=== PATIENT | female | born 1980 | race Caucasian/White ===

== ENCOUNTER 2019-11-18 15:12 | Outpatient (CLI) | payer OTHER, SELFPAY ==
--- NOTE | ~2019-11-18 | US_ITS ---
US OB <= 14 weeks fetus DATE: 11/18/2019 15:49 INDICATION: Gestational age determination TECHNIQUE: Real-time and Doppler analysis COMPARISON: None FINDINGS: There is measures 12.1 cm height, 5.4 cm AP and 7.3 cm transverse dimension. An intrauterine gestational sac is identified, with yolk sac and pole. There is normal surround ing hyperechogenicity consistent with decidual reaction. heart rate of 102 bpm. There is a 7 x 3 x 7 mm hypoechoic area adjacent to the gestational sac, consistent with subchorionic hemorrhage. Mean sac diameter measures 1.41 cm, consistent with 6 weeks estimated gestational age [place]-rump length of 0.39 cm is consistent with 6 weeks 1 day +/- 4 days estimated gestational age wi th LETHA of 07/12/2020, compared to 07/13/2020 by LMP. The right ovary measures 44 x 26 x 31 mm and contains a probable corpus luteum cyst measuring 27 x 18 .6 x 18.3 mm. The left ovary measures 29.6 x 11.6 x 21.9 mm. No pelvic mass or abnormal pelvic fluid collection is detected otherwise. IMPRESSION: Estimated gestational age of 6 weeks 1 day +/- 4 days; LETHA by ultrasound is 07/12/2020 Reviewed, dictated and finalized at [facility]. Reviewed, dictated and finalized at [facility]. IMPRESSION: Estimated gestational age of 6 weeks 1 day +/- 4 days; LETHA by ultra sound is 07/12/2020
== END 2019-11-18 15:13 | disposition home or self-care (01) ==
PROVIDERS: Visit Provider Obstetrics & Gynecology Gynecology
DX: O26.21 Pregnancy care for patient with recurrent pregnancy loss, first trimester (principal); Z3A.01 Less than 8 weeks gestation of pregnancy
CPT/HCPCS: 76801

== ENCOUNTER 2019-12-20 12:40 | Outpatient (CLI) | payer OTHER, SELFPAY ==
--- NOTE | ~2019-12-20 | US_ITS ---
EXAMINATION: US OB <= 14 weeks fetus DATE: 12/20/2019 13:40 INDICATION: Subchorionic hemorrhage, first trimester TECHNIQUE: Real-time pelvic transabdominal and transvaginal ultrasound was performed. COMPARISON: 11/18/2019 FINDINGS: The uterus measures 12.7 x 10.3 x 6.0 cm. There is an intrauterine gestational sac. There is an 11 mm x 5 mm x 10 mm hypoechoic area adjacent to the gestational sac which previously measured 7 x 3 x 7 mm. A yolk sac is identified. heart motion is identified measuring 161 beats per paul te (bpm) by M-mode Doppler. The crown rump length measures 3.8 cm , which correlates with an es timated gestational age of 11 weeks and 3 day(s) (+/-) 6 day(s). The left ovary is not visualized however no left adnexal abnormality is seen. The right ovary measure s 3.0 x 2.7 x 2.4 cm. There is normal vascular flow in the right ovary. There is no free fluid in the pelvis. IMPRESSION: 1. Live intrauterine with an estimated gestational age of 11 weeks and 3 day(s) (+/-) 6 day (s) and an estimated delivery date of 07/07/2020. 2. Persistent small subchorionic hematoma with minimal increase in size. Reviewed, dictated and finalized at location [facility]. IMPRESSION: 1. Live intrauterine with an estimated gestational age of 11 weeks an d 3 day(s) (+/-) 6 day(s) and an estimated delivery date of 07/07/2020. 2. Persistent small subchorionic hematoma with minimal increase in size.
== END 2019-12-20 12:41 | disposition home or self-care (01) ==
PROVIDERS: Visit Provider Obstetrics & Gynecology Gynecology
DX: O20.9 Hemorrhage in early pregnancy, unspecified (principal); Z3A.11 11 weeks gestation of pregnancy
CPT/HCPCS: 76801

== ENCOUNTER 2020-01-10 13:59 | Outpatient (CLI) | payer OTHER, SELFPAY ==
--- NOTE | ~2020-01-10 | US_ITS ---
EXAMINATION: US OB <= 14 weeks fetus DATE: 01/10/2020 14:33 INDICATION: Follow-up subchorionic hemorrhage. TECHNIQUE: Real-time transabdominal obstetric ultrasound. FINDINGS: Comparison to 12/20/2019 There is a single living fetus in breech presentation. No evidence for residual subchorionic hemorrha ge. The placenta is posterior without placenta previa. cardiac activity and movement is noted with a heart rate of 157 beats per minute. T he amniotic fluid volume is subjectively normal. The following biometric data were obtained: BPD: 25mm corresponds to gestational age 14 weeks 1 days. Head circumference: 91mm corresponds to gestational age 14 weeks 1 days. Abdominal circumference: 74mm corresponds to gestational age 14 weeks 0 days. Femur length: 13mm corresponds to gestational age 13 weeks 5 days. Estimated weight: 85grams +/- 13grams.] IMPRESSION: 1. Single living intrauterine in breech presentation with an estimated gestational age of 13 weeks 5 days by inititial ultrasound. Appropriate interval growth. 2. No evidence for residual subchorionic hemorrhage.. Reviewed, dictated and finalized at location [facility]. IMPRESSION: 1. Single living intrauterine in breech presentation with an estimat ed gestational age of 13 weeks 5 days by inititial ultrasound. Appropriate int erval growth. 2. No evidence for residual subchorionic hemorrhage..
== END 2020-01-10 14:00 | disposition home or self-care (01) ==
LOC: ANHIMG 14:01
PROVIDERS: Visit Provider Obstetrics & Gynecology Gynecology
DX: O36.8910 Maternal care for other specified fetal problems, first trimester, not applicable or unspecified (principal); Z3A.13 13 weeks gestation of pregnancy
CPT/HCPCS: 76801

== ENCOUNTER 2020-06-27 14:00 | Outpatient (CLI) | payer OTHER, SELFPAY ==
[2020-06-27 15:35] VITALS: BP 109/76; PULSE 82
[2020-06-27 15:44] LABS: Basophils Percent Auto 0.3 % (0.2-1.2); Eosinophils Percent Auto 0.6 % (0-4.4); Hematocrit 37.5 % (37.0-47.0); Hemoglobin 12.7 g/dL (12.0-15.0); Immature Granulocyte Absolute 0.03 K/mm3 (0.00-0.031); Immature Granulocyte Percent A 0.5 % (0-0.5); Lymphocytes Absolute Auto 1.93 K/mm3 (0.9-3.2); Lymphocytes Percent Auto 30.6 % (18.3-44.2); Mean Corpuscular HGB Conc 33.9 g/dl (32-36); Mean Corpuscular Hemoglobin 32.2 pg (26-34); Mean Corpuscular Volume 95.2 fl (80-100); Mean Platelet Volume 10.1 fl (7.4-10.4); Monocytes Absolute Auto 0.4 K/mm3 (0.1-0.6); Monocytes Percent Auto 5.6 % (2.6-8.5); Neutrophils Absolute Auto 3.9 K/mm3 (1.3-6.7); Neutrophils Percent Auto 62.4 % (45.5-73.1); Platelet Count Result 234 k/mm3 (150-375); Red Blood Count 3.94 M/mm3 (4.2-5.4); Red Cell Distribution Width 14.2 % (11.5-14.5); White Blood Count 6.3 K/mm3 (4.5-10.0)
[2020-06-27 15:54] LABS: Alanine Aminotransferase 6 U/L (4-35); Albumin Level 3.4 g/dL (3.5-5.1); Alkaline Phosphatase 72 U/L (38-126); Anion Gap 4 mmol/L (8-16); Aspartate Amino Transferase 19 U/L (14-36); Bilirubin,Total 0.1 mg/dL (0.2-1.3); Blood Urea Nitrogen 3 mg/dL (7-17); Calcium 9.5 mg/dL (8.4-10.2); Carbon Dioxide 26 mmol/L (22-30); Chloride 106 mmol/L (98-107); Estimated Glomerular Filt Rate > 60; Glucose 75 mg/dL (65-105); Lactate Dehydrogenase 369 U/L (313-618); Potassium 3.6 mmol/L (3.4-5.0); Sodium 136 mmol/L (137-145)
[2020-06-27 16:06] LABS: Creatinine Urine 66.7 mg/dL; Total Protein Urine Random 12 mg/dL; Ur Ttl Prot Creatinine Ratio 0.18 mg/mg (0-0.20)
[2020-06-27 16:14] LABS: Add Urine Microscopic? YES; Amorphous Sediment Urine Few; Appearance Urine Cloudy (Clear); Bacteria Urine 2+ /hpf; Bilirubin Urine Negative (Negative); Blood Urine Negative (Negative); Color Urine Yellow (Yellow); Glucose Urine UA Negative (Negative); Ketones Urine Negative (Negative); Leukocyte Esterase Ur Trace LEU/UL (NEGATIVE); Mucus Urine Rare /lpf; Nitrate Urine Negative (Negative); Protein Urine Negative (Negative); Squamous Epithelial Cell Urine Many /hpf (Few); Urobilinogen Urine Negative mg/dL (<2.0); WBC Urine 0-3 /hpf (0-3)
[2020-06-27 16:15] LABS: Partial Thromboplastin Time 25.7 SECONDS (22.3-36.8)
[2020-06-27 16:39] VITALS: BP 120/51; PULSE 80
--- NOTE | 2020-06-27 16:44 | PC.NURSE ---
called DR. orourke updated lab result for HIP. still waiting for clotting lab result. okay to discharge
[2020-06-29 11:24] LABS: Protein S Antigen, Free 47 % normal (50-147); Protein S Antigen, Total 84 % normal (70-140)
[2020-06-29 13:58] LABS: Protein C Antigen 82 % (70-140)
[2020-06-29 20:13] LABS: Antithrombin III Activity 141 % normal (80-135)
[2020-06-30 19:47] LABS: Anti Cardio Antibody IgM 13 MPL (<=12); Anti Cardiolipin Antibody IgA <11 APL (<=11); Anti Cardiolipin Antibody IgG <14 GPL (<=14)
[2020-07-03 13:19] LABS: Reference Lab Test Result 35
== END 2020-06-27 16:30 | disposition home or self-care (01) ==
LOC: ANHOBOP 14:05
PROVIDERS: PCP Family Medicine; Visit Provider Obstetrics & Gynecology Gynecology
DX: O13.9 Gestational [pregnancy-induced] hypertension without significant proteinuria, unspecified trimester (principal); Z3A.00 Weeks of gestation of pregnancy not specified
CPT/HCPCS: 36415; 59025; 80053; 81001; 81240; 81241; 81291; 82570; 83615; 84156; 84550; 85025; 85300; 85302; 85303; 85305; 85306; 85730; 86038; 86146; 86147; 87086

== ENCOUNTER 2020-07-05 14:24 | Outpatient (CLI) | payer OTHER, SELFPAY ==
[2020-07-05 15:22] LABS: Hematocrit 37.6 % (37.0-47.0); Hemoglobin 12.4 g/dL (12.0-15.0); Mean Corpuscular Hemoglobin 31.5 pg (26-34); Mean Corpuscular Volume 95.4 fl (80-100); Mean Platelet Volume 10.5 fl (7.4-10.4); Platelet Count Result 231 k/mm3 (150-375); Red Blood Count 3.94 M/mm3 (4.2-5.4); Red Cell Distribution Width 14.1 % (11.5-14.5); White Blood Count 6.9 K/mm3 (4.5-10.0)
[2020-07-06 13:04] LABS: Rapid Plasma Reagin Non-Reactive (NonReactive)
== END 2020-07-05 14:25 | disposition home or self-care (01) ==
PROVIDERS: PCP Family Medicine; Visit Provider Obstetrics & Gynecology Gynecology
DX: Z01.812 Encounter for preprocedural laboratory examination (principal); O34.219 Maternal care for unspecified type scar from previous cesarean delivery; Z3A.39 39 weeks gestation of pregnancy
CPT/HCPCS: 36415; 85027; 86592; 86850; 86900; 86901

== ENCOUNTER 2020-07-06 05:22 | Inpatient (IN) | payer OTHER, SELFPAY ==
--- NOTE | 2020-06-24 15:55 | PC.NURSE ---
VERIFIED WITH OR SCHEDULE AND PATIENT --C/S 07/06/20 AT 0730 PATIENT GIVEN REQUISITION FOR LAB DRAW ON 07/05/20
[2020-07-03 19:15] VITALS: BP 107/74; PULSE 67; RESP 14; TEMP 36.4; O2SAT 99
[2020-07-06] VITALS (67 sets, daily range): BP systolic 91–123; BP diastolic 56–82; PULSE 51–112; RESP 8–16; TEMP 35.9–36.8; O2SAT 83–100; BMI 27.2
--- NOTE | 2020-07-06 05:26 | LDADM ---
This patient, Catherine Cleveland, was admitted to Labor/Delivery/Recovery 120 on 07/06/20 at 05:22. Plans for labor, pain management and were discussed with patient. Patient/family oriented to hospital policies and general routines including ID bracelet, bed and alarms, visiting hours, pain management, procedures, bathroom and other care routines, personal items, smoking policy, room service/diet and guest tray routines, security routines, and visiting hours. Patient/Family are encouraged to report perceived risks to care and to ask questions if they do not understand what they are told or what they should do. See OBIX for further documentation.
--- NOTE | 2020-07-06 06:28 | WPDANESEPP ---
Anes - Eval Pre Procedure Procedure: Operation Date: 07/06/20 07:30 Proposed Procedures p Repeat Section - Amina Davis MD Date/Time: 07/06/20 06:28 Pre Op Diagnosis: C/S Patient Data Age: 40 Gender: F Height: 1.7 m Weight: 79 kg Allergies Allergy/AdvReac Type Severity Reaction Status Date / Time erythromycin base Allergy Intermediate Palpitation Verified 06/24/20 15:39 s amoxicillin AdvReac Intermediate Nightmare Verified 07/06/20 06:20 Home Medications Medication Instructions Recorded Confirmed Type cholecalciferol (vitamin D3) 125 mcg PO DAILY 06/24/20 06/24/20 History [Vitamin D3] ferrous sulfate 325 mg PO 3XW 06/24/20 06/24/20 History prenat.vits,estefany,zpw-ivgy-bujxl 1 tablet PO DAILY 06/24/20 07/06/20 History [ #2] Patient hx anesthesia problems: none Family hx anesthesia problems: none PMFSH Past Medical History Medical History Anxiety Surgical History Surgical History (Updated 07/06/20 @ 06:29 by Deepika Bowen CRNA) H/O: Family History Family History Mother Hypertension Father Hypertension Social History Social History Smoking status: Never smoker Substance use: never Spiritual care concerns: No Exam Day of Procedure 07/06/20 06:28
[2020-07-06] MEDS: LACTATED RINGERS 1,000 ML 125 ML IV CONT (06:36)
--- NOTE | 2020-07-06 06:36 | WPDANESEFPP ---
Anes - Eval Final PreProcedure Day of Procedure 07/06/20 06:36 Patient weight: overweight Heart: regular rate and rhythm Lungs: clear to auscultation Airway: Mallampati scale class II Neurological: alert and oriented Last oral intake: >/= 8 hours ASA classification: II Emergent: no Anesthetic plan: proceed Anesthesia type and monitoring: regional spinal and standard monitoring Informed Consent: The patient's anesthetic plan and its attendant risks and benefits were discussed with the patient/family/POA. Questions were solicited and answers provided to the satisfaction of the patient/family/POA.
--- NOTE | 2020-07-06 07:15 | WPDHPUPDATE1 ---
History and Physical Update Update Date/Time: 07/06/20 07:15 History and Physical has been reviewed, including an updated exam of the patient. There are NO changes in the patient's condition. Risks, benefits, and alternatives have been discussed and questions answered. Patient agrees to proceed with procedure.
--- NOTE | 2020-07-06 07:16 | PM.IMHP ---
H&P: HPI History of Present Illness Date/Time: 07/06/20 07:16 Chief Complaint: scheduled csection Narrative: 40 [id number] here for repeat csection at 39 wks. Patient with recent episode of vision loss and weakness and tingling of her left hand and fingers about 10 days ago. Clotting work up so far is normal but several labs are still pending. labs A+, RPR -, HIV -, Rubella Immune, HBSAG -, GBS -. She had normal NIPT and level 2 u/s for AMA. [facility] Past Medical History Medical History (Updated 07/06/20 @ 07:21 by Amina Davis MD) Anxiety Surgical History Surgical History (Updated 07/06/20 @ 07:21 by Amina Davis MD) H/O: x 2 Family History Family History Mother Hypertension Father Hypertension Social History Social History Smoking status: Never smoker Substance use: never Spiritual care concerns: No Meds Home Medications and Allergies Home Medications Medication Instructions Recorded Confirmed Type cholecalciferol (vitamin D3) 125 mcg PO DAILY 06/24/20 06/24/20 History [Vitamin D3] ferrous sulfate 325 mg PO 3XW 06/24/20 06/24/20 History prenat.vits,estefany,ndk-wtjf-avmly 1 tablet PO DAILY 06/24/20 07/06/20 History [ #2] Allergies Allergy/AdvReac Type Severity Reaction Status Date / Time erythromycin base Allergy Intermediate Palpitation Verified 06/24/20 15:39 s amoxicillin AdvReac Intermediate Nightmare Verified 07/06/20 06:20 Vital Signs Vital Signs - 24 hr 07/06/20 06:36 07/06/20 06:41 07/06/20 06:46 Pulse Rate 82 87 Blood Pressure 122/79 110/73 Pulse Oximetry 99 100 100 07/06/20 06:51 07/06/20 06:56 07/06/20 07:00 Pulse Rate 77 Blood Pressure 108/66 Pulse Oximetry 100 100 07/06/20 07:01 07/06/20 07:06 07/06/20 07:11 Pulse Rate Blood Pressure Pulse Oximetry 100 100 100 07/06/20 07:15 Pulse Rate Blood Pressure 115/74 Pulse Oximetry Exam Const: General: comfortable and anxious Resp: Effort & Inspection: normal respiratory effort Auscultation: clear to auscultation bilaterally Cardio: Rate: regular rate Rhythm: regular rhythm GI: Inspection: normal to inspection Other: Fundal ht 39 cm Assessment and Plan Assessment and plan (1) 39 weeks gestation of : Code(s): Z3A.39 - 39 weeks gestation of Status: Acute (2) H/O: : Code(s): Z98.891 - History of uterine scar from previous surgery Status: Inactive Assessment and Plan: Plan to proceed with repeat csection (3) TIA (transient ischemic attack): Code(s): G45.9 - Transient cerebral ischemic attack, unspecified Status: Acute Assessment and Plan: most likely recent TIA vs complicated migraine Plan pneumatics and will add nolberto jay post op in recovery
[2020-07-06] MEDS: ceFAZolin 2 GM/D5W 50 ML 2 GM/50 ML BAG IVPB (07:31)
[2020-07-06 07:45] LABS: HIV 1/2 Ab P24 Ag Result Negative (Negative)
--- NOTE | 2020-07-06 08:33 | P.OP_ITS ---
Procedure Note - Detailed Date of procedure: 07/06/20 Pre-op diagnosis: C/S Previous x2 Intrauterine at 39 weeks Post-op diagnosis: same Procedure performed: Repeat low transverse section with adhesiolysis Description of procedure: The patient was taken to the operating room and placed under spinal anesthesia in the dorsal supine position with a leftward tilt. She was prepped and draped in the usual sterile fashion. Once anesthesia was deemed adequate a Pfannenstiel skin incision was made through her prior incision and carried down to the underlying layer of fascia with the scalpel. The fascial incision was extended laterally using Arthur scissors. Bovie cautery was used to obtain hemostasis in the subcutaneous tissues. The fascial edges are grasped with [place] and the rectus muscles dissected off using sharp dissection due to adhesions. The peritoneum is entered bluntly and the incision extended to the left without difficulty however the right uterus is noted to be densely adherent to the anterior abdominal wall. Using sharp dissection, blunt dissection and Bovie cautery the uterus is dissected off the anterior abdominal wall. The bladder blade is placed. The bladder is noted to be densely adherent to the lower uterine segment. This was left intact and the lower uterine segment incision was made just above the bladder flap. Using a scalpel the uterus was i ncised in a transverse fashion and extended bluntly laterally. Membranes are ruptured and clear fluid noted. The vertex is guided through the incision is the dairy and food laboratory assistant applied fundal pressure. The infant was fully delivered. The cord is detangled, clamped, and cut. The is handed to the waiting nursery nurse. The placenta is removed using manual traction. The uterus is cleared of all clots and debris and exteriorized. The uterine incision was closed using 0 Monocryl in a running locked fashion with the same suture to imbricate 1 additional [id number] suture was required in the midline for hemostasis. The previously dissected uterine muscle required a running stitch of 0 Monocryl in a running locked fashion as well as several [id number] sutures for hemostasis. The cul-de-sac is irrigated and the uterus is returned to the abdomen. Gutters were irrigated. Incisions are again inspected and noted to be hemostatic. The fascia is closed using 0 Vicryl in a running fashion. Subcutaneous tissues were made hemostatic using Bovie cautery. Skin is closed using 4 0 Vicryl in a subcuticular fashion. Dermaflex was placed over the incision. Sponge, needle, and instrument counts are correct per the OR staff. Anesthesia: spinal Surgeon: Amina Davis MD Estimated blood loss (mL): 550 Drains: Yes ([place]) Packing: No Pathology: none sent Complications: No immediate complications Condition: stable Disposition: PACU Findings: Female infant weighing 7 lb 1 oz with 9 and 9 Apgars. Nuchal cord x1. Normal-appearing tubes and ovaries. The anterior abdominal wall is densely adherent to the right lower half of the uterus. Bladder flap is densely adherent.
--- NOTE | 2020-07-06 08:39 | PM.OBDSVD ---
DS: Admitting Diagnosis Admitting Diagnosis Admitting Diagnosis: Previous section x2 Intrauterine at 39 weeks DS: Discharge Diagnosis Discharge Diagnosis (1) 39 weeks gestation of : Code(s): Z3A.39 - 39 weeks gestation of Status: Acute (2) H/O: : Code(s): Z98.891 - History of uterine scar from previous surgery Status: Acute OB - DS: Summary OB Procedures : Ultrasound OB Procedures Intrapartum: low cervical, transverse OB Procedures: : None Peripartum Data Delivery Method: Section Procedures: Procedures Operation Date: 07/06/20 07:30 <No data on this case meets the specified criteria> complications: none Status at Discharge Functional status at discharge: independent ambulation Overall status at discharge: patient is progressing back to baseline Time Spent with Patient Time attestation: Total time spent providing and/or coordinating discharge services: DS: Data Data Completed and Pending Labs on day of discharge: Labs from last 24 hours 07/06/20 06:34 HIV 1&2 Ab/P24 Ag 4thGn Negative Discharge Plan Discharge Attending physician on discharge: Amina Davis Discharging Clinician: Allan Reaves Anticipated Discharge Date/Time: 07/09/20 08:40 Patient Disposition: Home, Self-Care Activity: may shower, may drive after 2 weeks and pelvic rest Diet: regular Wound Care Instructions: incision open to air Discharge Instructions: Education: Mom and Baby Guide Given to: Mother Follow-Up: Call your delivering provider's office for an appointment to be seen in: 1 Week Mom and baby should come to the [facility] for the follow-up appointment. Appointment Date/Time: July 10, 2020 at 11:00 am What to expect at your follow-up visit: Blood Pressure Check Call [phone] if you are unable to keep your appointment time. BREAST CARE: * Wear a snug supportive bra. * For engorgement discomfort: Breast Feeding: * Apply warm moist washcloths * Express milk as needed to relieve engorgement * Wear loose clothing Bottle Feeding: * May apply ice packs * For sore nipples: * Identify correct latch-on * Apply warm moist washcloths before and after nursing * Air dry nipples after nursing * May apply Lansinoh cream to nipples ABDOMINAL INCISION: (if applicable) * Allow incision to air dry * Do NOT use lotions for powders on your incision * When showering, allow soap and water to run over the incision, but do not wash incision EPISIOTOMY/PERINEAL CARE: * Until bleeding stops, use your jose bottle after urinating * Change your pad frequently throughout the day * You may take sitz baths several times a day (fill your bathtub with warm water and soak for 20 minutes.) Do NOT bathe in the water * No tub baths until seen by your physician - You may shower ACTIVITY: * Rest as much as possible. * Do not exercise or lift anything heavier than your baby (such as laundry or other children.) * Avoid stairs or driving as much as possible. * Do not put anything into the vagina. No douching, tampons, or sexual activity until seen by physician. NOTIFY PHYSICIAN IF YOU HAVE ANY QUESTIONS OR IF ANY OF THE FOLLOWING SYMPTOMS OCCUR: * If your episiotomy or incision becomes red, swollen, or more painful than what you have experienced in the hospital. * If your vaginal bleeding becomes foul smelling. * If your vaginal bleeding becomes more heavy than a period or if your bleeding changes from pink to bright red. However, you may pass an occasional walnut-sized clot once or twice for the first week . * If you experience a sharp, shooting pain in you calves. * If you discover a hard, reddened area on your breast or if you experience flu-like symptoms.
[2020-07-06] MEDS: OXYTOCIN 30 UNITS/NS 500 ML 30 UNITS/500 ML BAG 125 UNITS IV CONT (09:45)
[2020-07-06] MEDS: ENOXAPARIN 40 MG/0.4 ML SYRINGE SUB-Q (10:10)
--- NOTE | 2020-07-06 12:25 | PC.NURSE ---
Patient transferred to post room #281 via stretcher. Support person present. Oriented to unit, room, information board, rooming in, admission packet and security measures. Patient verbalizes understanding.
--- NOTE | 2020-07-06 13:10 | PC.NURSE ---
Consult with pt., mother reports infant eagerly fed first feeding without difficulties or discomfort. Mother states she is 3 year old once per day, mostly for comfort. Reviewed feeding cues, frequencies, duration of feedings, feeding elimination flow sheet, and signs of adequate intake. Demonstrated stimulation techniques to wake for feeding. Assisted with to breast. Reviewed positioning/alignment in cross cradle, holding breast in U hold and guided asymmetrical latch on. Mother prefers cradle. was eager able to latch correctly, slightly shallow. Infant nursed eagerly, with steady draws and occasional swallowing noted. Reviewed signs of a correct latch, effective nursing and suck swallow ratio. Infant was able to maintain latch without discomfort to mother. Nipple care reviewed. Infant slipped to shallow latch at times. Demonstrated how to adjust latch more deeply while feeding. Suggested to stimulate while feeding to keep infant awake and nursing effectively for increased stimulation, increased intake and assist with maintaining deep latch. Instructed mother to call out for RN assistance if she is unable to latch for feeding or she has discomfort with nursing. Instructed feeding should be initiated three hours from start of last feeding or if feeding cues are noted before. Mother voiced understanding of information shared.
[2020-07-06] MEDS: DEXTROSE 5%/0.45% SOD CHL 1,000 ML 125 ML IV CONT (14:23)
[2020-07-06] MEDS: DOCUSATE SODIUM 100 MG CAPSULE PO (16:41)
[2020-07-06] MEDS: IBUPROFEN 600 MG TABLET PO (21:17)
[2020-07-07 03:50] VITALS: BP 106/85; PULSE 60; RESP 13; TEMP 36.1; O2SAT 100
[2020-07-07 04:27] LABS: Basophils Percent Auto 0.4 % (0.2-1.2); Eosinophils Absolute Auto 0.1 K/mm3 (0-0.3); Eosinophils Percent Auto 0.6 % (0-4.4); Hematocrit 36.4 % (37.0-47.0); Hemoglobin 11.9 g/dL (12.0-15.0); Immature Granulocyte Absolute 0.04 K/mm3 (0.00-0.031); Immature Granulocyte Percent A 0.5 % (0-0.5); Lymphocytes Absolute Auto 1.88 K/mm3 (0.9-3.2); Lymphocytes Percent Auto 24.3 % (18.3-44.2); Mean Corpuscular HGB Conc 32.7 g/dl (32-36); Mean Corpuscular Hemoglobin 32.2 pg (26-34); Mean Corpuscular Volume 98.6 fl (80-100); Mean Platelet Volume 10.5 fl (7.4-10.4); Monocytes Absolute Auto 0.5 K/mm3 (0.1-0.6); Neutrophils Absolute Auto 5.2 K/mm3 (1.3-6.7); Neutrophils Percent Auto 67.2 % (45.5-73.1); Platelet Count Result 193 k/mm3 (150-375); Red Blood Count 3.69 M/mm3 (4.2-5.4); Red Cell Distribution Width 14.1 % (11.5-14.5); White Blood Count 7.7 K/mm3 (4.5-10.0)
[2020-07-07 09:00] VITALS: PULSE 73; RESP 16; O2SAT 100
[2020-07-07] MEDS: IBUPROFEN 600 MG TABLET PO ×2 (09:47→17:14)
[2020-07-07] MEDS: DOCUSATE SODIUM 100 MG CAPSULE PO ×2 (09:47→17:14)
[2020-07-07] MEDS: ENOXAPARIN 40 MG/0.4 ML SYRINGE SUB-Q (09:49)
[2020-07-07] MEDS: MULTIVIT/MIN/PREN/FOL AC/IRON TABLET 1 TAB PO (09:49)
--- NOTE | 2020-07-07 11:30 | PC.NURSE ---
Consult with pt.,mother reports infant is eagerly latching and feels is slipping to shallow latch due to heavy milk flow, causing tenderness with feedings. Infant has been spitty during the night. Reviewed infants can be spitty the first few days and should resolve. Discussed deep latch and assisting infant to maintain latch. Discussed ways to assist infant handle heavy milk flow, with allowing infant to latch and lying back to complete feeding, self expression to allow milk flow before latch and blocked feeding if oversupply and forceful let down continue. Requested mother call out for observation of infant feeding.
--- NOTE | 2020-07-07 12:30 | WPDANLDPN2 ---
Anes-Prog Note L&D Date/Time: 07/07/20 12:30 Comfortable throughout: section Neuraxial method: spinal Epidural/Spinal procedure site: clean & non-tender Neuro status: Neuro function grossly intact. Cardiovascular status: normal Respiratory status: normal Airway patency: baseline Mental status: baseline Post-Op hydration status: normal Vital Signs: Last Vital Signs Temp 36.1 C L 07/07/20 03:50 Pulse 60 07/07/20 03:50 Resp 13 07/07/20 03:50 BP 106/85 07/07/20 03:50 Pulse Ox 100 07/07/20 03:50 Pain score (VAS): 03/26 I/O: Intake & Output 07/06/20 07/07/20 07/07/20 23:59 07:59 15:59 Intake Total 488 300 Output Total 1780 825 Balance -1292 -525 Post-procedural complaints: none Patient feedback: Patient satisfied with anesthetic care.
--- NOTE | 2020-07-07 12:30 | WPDANLDNPN2 ---
Anes-Prog Note L&D-Neuraxial Date/Time: 07/07/20 12:30 Neuraxial medications: intrathecal PF morphine Opiod-related complaints: none Patient feedback: Patient satisfied with post-operative pain management.
[2020-07-07 12:54] VITALS: BP 116/71; PULSE 73; RESP 16; TEMP 36.8; O2SAT 100
--- NOTE | 2020-07-07 16:39 | PM.OBPNVD ---
OB - PN: Subj Subjective Date/time seen: 07/07/20 16:39 Ding well no complaints OB - PN: Obj Data Labs CBC & Chem 7: 07/07/20 03:57 Labs: Laboratory Results - last 24 hr 07/07/20 03:57 WBC 7.7 RBC 3.69 L Hgb 11.9 L Hct 36.4 L MCV 98.6 MCH 32.2 MCHC 32.7 RDW 14.1 Plt Count 193 MPV 10.5 H Immature Gran % (Auto) 0.5 Neut % (Auto) 67.2 Lymph % (Auto) 24.3 [place] % (Auto) 7.0 Eos % (Auto) 0.6 Baso % (Auto) 0.4 Lymph # (Auto) 1.88 [place] # (Auto) 0.5 Eos # (Auto) 0.1 Baso # (Auto) 0.0 Abs Immat Gran (auto) 0.04 H Absolute Neuts (auto) 5.2 Absolute Nucleated RBC 0.0 Nucleated RBC % 0.0 OB - PN A/P Assessment and Plan (1) H/O: : Code(s): Z98.891 - History of uterine scar from previous surgery Status: Acute Assessment and Plan: continue with pp care. Time Spent With Patient Time: Total time spent is greater than 50% in coordination of care (as documented) at patient's floor/unit and/or counseling patient: Exam Narrative: Exam Narrative: incision c/d/i ff below umbilicus
[2020-07-07 20:35] VITALS: BP 110/68; PULSE 75; RESP 14; TEMP 36.8; O2SAT 99
[2020-07-08] MEDS: IBUPROFEN 600 MG TABLET PO (08:07)
[2020-07-08] MEDS: MULTIVIT/MIN/PREN/FOL AC/IRON TABLET 1 TAB PO (08:08)
[2020-07-08] MEDS: DOCUSATE SODIUM 100 MG CAPSULE PO (08:08)
[2020-07-08 08:29] VITALS: BP 124/82; PULSE 72; RESP 15; RESP 16; TEMP 36.7; O2SAT 100
[2020-07-08] MEDS: ENOXAPARIN 40 MG/0.4 ML SYRINGE SUB-Q (08:54)
--- NOTE | 2020-07-08 10:04 | PM.OBPNVD ---
OB - PN: Subj Subjective Date/time seen: 07/08/20 10:04 doing well no complaints desires home OB - PN: Obj Data Labs CBC & Chem 7: 07/07/20 03:57 OB - PN A/P Assessment and Plan (1) H/O: : Code(s): Z98.891 - History of uterine scar from previous surgery Status: Acute Assessment and Plan: d/c home continue with lovenox f/u in [address] orourke. (2) TIA (transient ischemic attack): Code(s): G45.9 - Transient cerebral ischemic attack, unspecified Status: Acute Time Spent With Patient Time: Total time spent is greater than 50% in coordination of care (as documented) at patient's floor/unit and/or counseling patient: Exam Narrative: Exam Narrative: ff below umilicus incision in tact
--- NOTE | 2020-07-08 11:11 | PC.NURSE ---
Patient discharged with infant to awaiting vehicle. Discharge instructions provided and all questions answered.
[2020-07-10 11:21] VITALS: BP 109/73; PULSE 90; RESP 20; TEMP 37; O2SAT 100
== END 2020-07-08 11:05 | disposition home or self-care (01) | DRG 540 ==
LOC: ANHLDR 07-11 09:13 → ANHOB2 07-11 09:13
PROVIDERS: Admitting Provider Obstetrics & Gynecology Gynecology; PCP Family Medicine; Visit Provider Obstetrics & Gynecology
PROC: 10D00Z1 Extraction of Products of Conception, Low, Open Approach (ICD-10-PCS; CPT 59514; principal; 2020-07-06 07:30)
DX: O34.211 Maternal care for low transverse scar from previous cesarean delivery (principal); O69.81X0 Labor and delivery complicated by cord around neck, without compression, not applicable or unspecified; O99.892 Other specified diseases and conditions complicating childbirth; N73.6 Female pelvic peritoneal adhesions (postinfective); G45.9 Transient cerebral ischemic attack, unspecified; Z3A.39 39 weeks gestation of pregnancy; Z37.0 Single live birth
CPT/HCPCS: 36415; 85025; 86703; A9270; G0432; J0131; J0690; J1650; J2274; J2370; J2405; J2590; J7120

== ENCOUNTER 2021-12-06 12:37 | Outpatient (CLI) | payer OTHER, SELFPAY ==
--- NOTE | ~2021-12-06 | US_ITS ---
EXAMINATION: US OB <= 14 weeks fetus DATE: 12/06/2021 13:46 INDICATION: viability assessment during first trimester TECHNIQUE: Real-time pelvic transabdominal and transvaginal ultrasound was performed. COMPARISON: None. FINDINGS: The uterus measures 12.2 x 4.6 x 8.3 cm. There is an intrauterine gestational sac. There i s a 1.5 x 0.3 x 0.7 cm hypoechoic area adjacent to the gestational sac. A yolk sac is identified. Fet al heart motion is identified measuring 109 beats per minute (bpm) by M-mode Doppler. The crown rump length measures 4 mm, which correlates with an estimated gestational age of 6 weeks and 1 day(s ) (+/-) 4 day(s). The right ovary measures 4.8 x 2 x 2.9 cm. The left ovary measures 2.9 x 2 x 2.5 cm. There is normal vascular flow in the ovaries. There is no free fluid in the pelvis. IMPRESSION: 1. Live intrauterine with an estimated gestational age of 6 weeks and 1 day(s) (+/-) 4 day( s) and an estimated delivery date of 07/31/2022. 2. Small subchorionic hematoma. Reviewed, dictated and finalized at location A. IMPRESSION: 1. Live intrauterine with an estimated gestational age of 6 weeks and 1 day(s) (+/-) 4 day(s) and an estimated delivery date of 07/31/2022. 2. Small subchorionic hematoma.
== END 2021-12-06 12:38 | disposition home or self-care (01) ==
PROVIDERS: PCP Nurse Practitioner Family; Visit Provider Obstetrics & Gynecology Gynecology
DX: O36.80X0 Pregnancy with inconclusive fetal viability, not applicable or unspecified (principal); Z3A.01 Less than 8 weeks gestation of pregnancy; O36.8911 Maternal care for other specified fetal problems, first trimester, fetus 1
CPT/HCPCS: 76801

== ENCOUNTER 2021-12-21 12:52 | Outpatient (CLI) | payer OTHER, SELFPAY ==
--- NOTE | ~2021-12-21 | US_ITS ---
EXAMINATION: US OB <= 14 weeks fetus DATE: 12/21/2021 14:01 INDICATION: Subchorionic hematoma TECHNIQUE: Real-time transabdominal obstetric ultrasound. FINDINGS: Comparison to 12/06/2021 The uterus measures 11.6 x 5.4 x 8.2 cm. There is an intrauterine gestational sac, with pole id entified. The crown rump length measures 1.68 cm. heart tones are identified measuring 147. Small residual subchorionic hemorrhage measuring 11 mm. IMPRESSION: 1. SL IUP with an EGA of 8 weeks, 2 days (EDC by initial ultrasound of 07/31/2022). 2: Small subchorionic hematoma. Reviewed, dictated and finalized at location A. IMPRESSION: 1. SL IUP with an EGA of 8 weeks, 2 days (EDC by initial ultrasound of 3). 2: Small subchorionic hematoma.
== END 2021-12-21 12:53 | disposition home or self-care (01) ==
LOC: ANHIMG 12:56
PROVIDERS: PCP Family Medicine; Visit Provider Obstetrics & Gynecology Gynecology
DX: O36.8910 Maternal care for other specified fetal problems, first trimester, not applicable or unspecified (principal); Z3A.08 8 weeks gestation of pregnancy
CPT/HCPCS: 76801

== ENCOUNTER 2022-01-17 12:34 | Outpatient (CLI) | payer OTHER, SELFPAY ==
--- NOTE | ~2022-01-17 | US_ITS ---
US OB <= 14 weeks fetus DATE: 01/17/2022 13:43 INDICATION: Subchorionic hematoma TECHNIQUE: Real-time and color flow imaging and Doppler analysis COMPARISON: 12/21/2021 obstetrical ultrasound 12/06/2021 obstetrical ultrasound FINDINGS: There is a 1.1 x 1.3 x 1.6 cm subchorionic hematoma. Normally shaped intrauterine gestational sac with pole. heart rate of 165 bpm. Normal david unt of amniotic fluid. 2.6 x 3.5 x 3.1 cm left ovarian cyst. No pelvic mass or abnormal free pelvic fluid collection is note d. [place]-rump length averages 5.57 cm, consistent with estimated gestational age of 12 weeks 1 day +/- 1 week 1 day; LETHA: 07/31/2022. Normal interval growth since 12/06/2021 IMPRESSION: Small subchorionic hematoma Reviewed, dictated and finalized at Location A. Reviewed, dictated and finalized at location A. IMPRESSION: Small subchorionic hematoma
== END 2022-01-17 12:35 | disposition home or self-care (01) ==
PROVIDERS: PCP Family Medicine; Visit Provider Obstetrics & Gynecology Gynecology
DX: O36.8910 Maternal care for other specified fetal problems, first trimester, not applicable or unspecified (principal); Z3A.00 Weeks of gestation of pregnancy not specified
CPT/HCPCS: 76801

== ENCOUNTER 2022-02-05 12:55 | Emergency (ER) | payer OTHER, SELFPAY ==
[2022-02-05 13:49] VITALS: BP 106/78; PULSE 83; RESP 16; TEMP 36.8; O2SAT 100
--- NOTE | 2022-02-05 13:52 | ED.URI ---
HPI - URI/Sore Throat General Chief Complaint: Upper Respiratory Infection Stated Complaint: SWOLLEN TONSILS/PAINFUL SWALLOWING Time Seen by Provider: 02/05/22 13:52 Source: patient, RN notes reviewed and old records reviewed Mode of arrival: ambulatory Limitations: no limitations History of Present Illness HPI Narrative: 41-year-old female who is presents to the [facility] with complaints of swollen tonsils and painful swallowing for 3 days. Patient states that she is 15 weeks [address] girl[address]. Davis is primary OB Related Data Home Medications Medication Instructions Recorded Confirmed cholecalciferol (vitamin D3) 125 125 mcg PO DAILY 06/24/20 06/24/20 mcg (5,000 unit) tablet (Vitamin D3) prenat.vits,estefany,sjy-gjaq-ndrgh 1 tablet PO DAILY 06/24/20 07/06/20 norethindrone (contraceptive) 0.35 0.35 mg PO DAILY 11/06/20 mg tablet Allergies Allergy/AdvReac Type Severity Reaction Status Date / Time erythromycin base Allergy Intermediate Palpitation Verified 11/06/20 07:40 s amoxicillin AdvReac Intermediate Nightmare Verified 11/06/20 07:40 Review of Systems Review of Systems: All systems reviewed & are unremarkable except as noted in HPI and below Constitutional: Constitutional: Reports no additional constitutional complaints, Denies chills and Denies fever(s) Eyes: Eyes: Reports no additional eye complaints ENT: Reports as per HPI and Reports sore throat Cardiovascular: Cardiovascular: Reports no additional cardiovascular complaints Respiratory: Respiratory: Reports no additional respiratory complaints Gastrointestinal: Gastrointestinal: Reports no additional gastrointestinal complaints Musculoskeletal: Musculoskeletal: Reports no additional musculoskeletal complaints Integumentary/Breasts: Skin/Breast: Reports system reviewed and no additional complaints, except as docu Neurologic: Reports system reviewed and no additional complaints, except as documented Psychiatric: Psychiatric: Reports no additional psychiatric complaints Allergic/Immunologic: Allergic/Immunologic: Reports no additional allergic/immunologic complaints PMFSH Past Medical History Medical History Anxiety Surgical History Surgical History H/O: x 2 Family History Family History Mother Hypertension Father Hypertension Social History Social History Smoking status: Never smoker Substance use: never Spiritual care concerns: No Comments At the time of my signature, I reviewed and agree with the nursing past medical, surgical, social, and family history. There is no relevant family history pertinent to the patient complaint. Exam Const: General: healthy appearing, comfortable, no acute distress, well developed, alert and well nourished Nutritional Appearance: well nourished Orientation/consciousness: patient oriented x3 Limitations: no limitations HENMT: Head: normal to inspection Ears: external ears normal, TM's normal bilaterally and EAC's normal Face/Nose/Sinus: Normal external nose present and Normal nares present Face and sinus: normal facial exam Mouth: Yes Normal oral and palatal mucosa present, Yes lip normal and Yes moist mucous membranes Throat: uvula midline, abnormal tonsil bilateral erythema and hypertrophy 3+; no exudates, no peritonsillar masses and posterior oropharynx abnormal erythema; no cobblstoning, no edema and no exudates Eyes: General: appearance normal, both eyes and all related structures Conjunctivae: conjunctivae normal Pupils: Equal, round and reactive pupils present Neck: Neck: normal visual inspection, full ROM, no lymphadenopathy and no meningeal signs Chest: Chest palpation & inspection: normal inspection of the chest Resp:
== END 2022-02-05 14:10 | disposition home or self-care (01) ==
PROVIDERS: Emergency Provider Nurse Practitioner; PCP Family Medicine
DX: O98.512 Other viral diseases complicating pregnancy, second trimester (principal); J02.0 Streptococcal pharyngitis; Z3A.15 15 weeks gestation of pregnancy
CPT/HCPCS: 87804; 87880; 99213; G0463

== ENCOUNTER 2022-02-11 12:35 | Outpatient (CLI) | payer OTHER, SELFPAY ==
--- NOTE | ~2022-02-11 | US_ITS ---
EXAMINATION: US OB follow up DATE: 02/11/2022 13:01 INDICATION: Subchorionic hemorrhage. TECHNIQUE: Real-time transabdominal obstetric ultrasound. FINDINGS: Comparison to 01/17/2022 There is a single living fetus in breech presentation. The placenta is anterior without placenta pre via. Decreased size of subchorionic hemorrhage measuring 1.2 x 1 x 0.7 cm compared with 1.6 x 1.3 x 1 .1 cm on prior examination. cardiac activity and movement is noted with a heart rate of 150 beats per minute. T he amniotic fluid volume is subjectively normal. The following biometric data were obtained: BPD: 32mm corresponds to gestational age 16 weeks 0 days. Head circumference: 129mm corresponds to gestational age 16 weeks 3 days. Abdominal circumference: 111mm corresponds to gestational age 17 weeks 0 days. Femur length: 20mm corresponds to gestational age 16 weeks 1 days. Estimated weight: 160grams +/- 24grams, 90%.] IMPRESSION: 1. Single living intrauterine in breech presentation with an estimated gestational age of 15 weeks 5 days by inititial ultrasound. Appropriate interval growth. 2. Decreased size of subchorionic hemorrhage compared with prior study. Reviewed, dictated and finalized at location A. 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 Single living intrauterine in breech presentation with an estimat ed gestational age of 15 weeks 5 days by inititial ultrasound. Appropriate int erval growth. 2. Decreased size of subchorionic hemorrhage compared with prior study.
== END 2022-02-11 12:36 | disposition home or self-care (01) ==
PROVIDERS: PCP Family Medicine; Visit Provider Obstetrics & Gynecology Gynecology
DX: O36.8920 Maternal care for other specified fetal problems, second trimester, not applicable or unspecified (principal); Z3A.15 15 weeks gestation of pregnancy
CPT/HCPCS: 76816

== ENCOUNTER 2022-07-12 19:45 | Outpatient (RCR) | payer OTHER, SELFPAY ==
[2022-06-11 14:07] VITALS: BP 104/65
[2022-06-24 10:21] VITALS: BP 104/63
[2022-07-12 20:16] VITALS: BP 101/66; PULSE 77
== END 2022-08-16 17:37 | disposition home or self-care (01) ==
LOC: ANHOBOP 19:45
PROVIDERS: PCP Family Medicine; Visit Provider Obstetrics & Gynecology Gynecology
DX: O98.513 Other viral diseases complicating pregnancy, third trimester (principal); U07.1 COVID-19; Z3A.32 32 weeks gestation of pregnancy; Z3A.34 34 weeks gestation of pregnancy; O09.513 Supervision of elderly primigravida, third trimester; Z3A.37 37 weeks gestation of pregnancy
CPT/HCPCS: 59025

== ENCOUNTER 2022-07-16 14:13 | Outpatient (CLI) | payer OTHER, SELFPAY ==
--- NOTE | ~2022-07-16 | US_ITS ---
EXAMINATION: US OB follow up DATE: 07/16/2022 15:54 INDICATION: Size less than expected for estimated gestational age. TECHNIQUE: Real-time ultrasound of the pelvis was performed. The interpreting radiologist was not pre sent for the study. COMPARISON: 02/11/22 FINDINGS: There is a single living fetus in vertex presentation. The placenta is anterior. heart rate is 136 beats per minute (bpm). The amniotic fluid index is 8.4 cm, which is normal (5th%-95%: 7.5-24.4 cm at 37 weeks estimated gestational age). The following biometric data were obtained: BPD: 8.7 cm -> 34 weeks 6 days Head circumference: 32.6 cm -> 37 weeks 0 days Abdominal circumference: 31.5 cm -> 35 weeks 3 days Femur length: 7.0 cm -> 36 weeks 0 days These measurements are concordant. Head circumference to abdominal circumference ratio: 1.03 (normal range 0.93-1.08). Estimated weight: 2744 g (+/-) 412 g or 6 lbs. 1 oz. (+/-) 15 oz. IMPRESSION: 1. Single living fetus in vertex presentation with heart rate of 136 bpm. 2. Normal amniotic fluid index of 8.4 cm.. 3. Estimated weight is 13th percentile by Hadlock criteria when 07/31/22 is used as the estimate d date of delivery (LETHA). Please correlate with clinical information or earlier ultrasounds for most accurate LETHA. Reviewed, dictated and finalized at location L. IMPRESSION: 1. Single living fetus in vertex presentation with heart rate of 136 bpm. 2. Normal amniotic fluid index of 8.4 cm.. 3. Estimated weight is 13th percentile by Hadlock criteria when 07/31/22 i s used as the estimated date of delivery (LETHA). Please correlate with clinical information or earlier ultrasounds for most accurate LETHA.
== END 2022-07-16 14:14 | disposition home or self-care (01) ==
PROVIDERS: PCP Family Medicine; Visit Provider Advanced Practice Midwife
DX: O36.5930 Maternal care for other known or suspected poor fetal growth, third trimester, not applicable or unspecified (principal); Z3A.00 Weeks of gestation of pregnancy not specified
CPT/HCPCS: 76816

== ENCOUNTER 2022-07-27 08:50 | Outpatient (CLI) | payer OTHER, SELFPAY ==
[2022-07-27 09:08] LABS: Hematocrit 38.7 % (37.0-47.0); Hemoglobin 12.8 g/dL (12.0-15.0); Mean Corpuscular HGB Conc 33.1 g/dl (32-36); Mean Corpuscular Hemoglobin 32.2 pg (26-34); Mean Corpuscular Volume 97.2 fl (80-100); Mean Platelet Volume 10.2 fl (7.4-10.4); Platelet Count Result 227 k/mm3 (150-375); Red Blood Count 3.98 M/mm3 (4.2-5.4); Red Cell Distribution Width 13.6 % (11.5-14.5)
[2022-07-29 08:44] LABS: Rapid Plasma Reagin Non-Reactive (NonReactive)
== END 2022-07-27 08:51 | disposition home or self-care (01) ==
PROVIDERS: PCP Family Medicine; Visit Provider Obstetrics & Gynecology Gynecology
DX: Z34.93 Encounter for supervision of normal pregnancy, unspecified, third trimester (principal); Z3A.00 Weeks of gestation of pregnancy not specified
CPT/HCPCS: 36415; 85027; 86592; 86850; 86900; 86901

== ENCOUNTER 2022-07-29 05:35 | Inpatient (IN) | payer OTHER, SELFPAY ==
--- NOTE | 2022-07-06 16:05 | PC.NURSE ---
Verified with OR schedule and patient -C/S with tubal on 07/29/22 @ 0730 Patient given requisition for lab draw on 07/27/22
--- NOTE | 2022-07-26 16:12 | P.PNAN_ITS ---
Anes - Initial Pre Proc Eval Procedure: Operation Date: 07/29/22 07:30 Proposed Procedures p Repeat Section with Bilateral Tubal Ligation - Amina Davis MD Date/Time: 07/26/22 16:12 Surgeon: Amina Davis MD Pre Op Diagnosis: C/S Patient Data Age: 42 Gender: F Height: Weight: Allergies Allergy/AdvReac Type Severity Reaction Status Date / Time erythromycin base Allergy Intermediate Palpitation Verified 07/06/22 15:41 s amoxicillin AdvReac Intermediate Nightmare Verified 07/06/22 15:41 Home Medications Medication Instructions Recorded Confirmed Type prenat.vits,estefany,bwy-sjdu-puhrj 1 tablet PO DAILY 06/24/20 07/29/22 History aspirin 81 mg tablet 162 mg PO DAILY 07/06/22 07/29/22 History cholecalciferol (vitamin D3) 125 125 mcg PO DAILY 07/06/22 07/29/22 History mcg (5,000 unit) tablet (Vitamin D3) ferrous sulfate 325 mg (65 mg 325 mg PO DAILY 07/06/22 07/29/22 History iron) tablet,delayed release folic acid 0.8 mg capsule 0.8 mg PO DAILY 07/06/22 07/29/22 History Patient hx anesthesia problems: none Family hx anesthesia problems: none Results Review: All pre-operative results and documents have been reviewed as part of the pre- operative evaluation. [facility] Past Medical History Medical History Anxiety Surgical History Surgical History H/O: x 2 Family History Family History (Updated 07/06/22 @ 15:47 by Jamie De Paz RN) Mother Hypertension Father Hypertension Grandparent Diabetes mellitus Social History Social History Smoking packs per day: 1 Smoking cigarettes per day: 20.0 Years smoked: 16 Smoking pack-years: 16.00 Smoking status: Former smoker Tobacco type: cigarettes Second hand tobacco smoke exposure: No Substance use: never Lack of Transportation: No Lack of Food: Never True Current Housing: I Have Housing Concerned About Future Housing: No Difficulty Paying Gas/Electric Bills: No Difficulty Paying for Meds: No Currently Unemployed: No Education: Grade School Difficulty w/ Childcare or Family Care: No Spiritual care concerns: No Anes - Eval Final PreProcedure Day of Procedure 07/26/22 16:12 Patient weight: overweight Heart: regular rate and rhythm Lungs: clear to auscultation Airway: Mallampati scale class II Neurological: alert and oriented Last oral intake: >/= 8 hours ASA classification: II Emergent: no Anesthetic plan: proceed Anesthesia type and monitoring: regional spinal and standard monitoring Results Review: All pre-operative results and documents have been reviewed as part of the pre- operative evaluation. Informed Consent: The patient's anesthetic plan and its attendant risks and benefits were discussed with the patient/family/POA. Questions were solicited and answers provided to the satisfaction of the patient/family/POA.
[2022-07-29] VITALS (61 sets, daily range): BP systolic 84–120; BP diastolic 42–87; PULSE 52–87; RESP 12–19; TEMP 36.1–37; O2SAT 93–100; BMI 27.1
[2022-07-29] MEDS: LACTATED RINGERS 1,000 ML 999 ML IV CONT (06:21)
--- NOTE | 2022-07-29 06:26 | LDADM ---
This patient, Catherine Cleveland, was admitted to Labor/Delivery/Recovery 120 on 07/29/22 at 05:35. Plans for labor, pain management and were discussed with patient. Patient/family oriented to hospital policies and general routines including ID bracelet, bed and alarms, visiting hours, pain management, procedures, bathroom and other care routines, personal items, smoking policy, room service/diet and guest tray routines, security routines, and visiting hours. Patient/Family are encouraged to report perceived risks to care and to ask questions if they do not understand what they are told or what they should do. See OBIX for further documentation.
--- NOTE | 2022-07-29 07:19 | WPDHPUPDATE1 ---
History and Physical Update Update Date/Time: 07/29/22 07:19 History and Physical has been reviewed, including an updated exam of the patient. There are NO changes in the patient's condition. Risks, benefits, and alternatives have been discussed and questions answered. Patient agrees to proceed with procedure.
--- NOTE | 2022-07-29 07:19 | PM.IMHP ---
H&P: HPI History of Present Illness Date/Time: 07/29/22 07:19 Chief Complaint: Patient is a 42-year-old 5 para 3 aborta 1 at 39-,5/7 weeks admitted for repeat section and bilateral tubal ligation. The patient's was fairly uncomplicated. She did have COVID at 5, 24 and 35 weeks. heart tones have been reactive throughout and growth has been normal. labs A-positive rubella immune RPR negative hepatitis-B surface antigen negative HIV group B strep negative. The patient had level 2 ultrasound due to advanced maternal age which was normal and her NIPT was low risk. Review of Systems Review of Systems: not repeated day of surgery; patient states no changes in status PMFSH Past Medical History Medical History (Updated 07/29/22 @ 07:23 by Amina Davis MD) Anxiety Migraines Surgical History Surgical History (Updated 07/29/22 @ 07:22 by Amina Davis MD) H/O: x 3 Family History Family History (Updated 07/06/22 @ 15:47 by Jamie De Paz RN) Mother Hypertension Father Hypertension Grandparent Diabetes mellitus Social History Social History Smoking packs per day: 1 Smoking cigarettes per day: 20.0 Years smoked: 16 Smoking pack-years: 16.00 Smoking status: Former smoker Tobacco type: cigarettes Second hand tobacco smoke exposure: No Substance use: never Lack of Transportation: No Lack of Food: Never True Current Housing: I Have Housing Concerned About Future Housing: No Difficulty Paying Gas/Electric Bills: No Difficulty Paying for Meds: No Currently Unemployed: No Education: Grade School Difficulty w/ Childcare or Family Care: No Spiritual care concerns: No Meds Home Medications and Allergies Home Medications Medication Instructions Recorded Confirmed Type prenat.vits,estefany,jwv-ipwy-voyri 1 tablet PO DAILY 06/24/20 07/29/22 History aspirin 81 mg tablet 162 mg PO DAILY 07/06/22 07/29/22 History cholecalciferol (vitamin D3) 125 125 mcg PO DAILY 07/06/22 07/29/22 History mcg (5,000 unit) tablet (Vitamin D3) ferrous sulfate 325 mg (65 mg 325 mg PO DAILY 07/06/22 07/29/22 History iron) tablet,delayed release folic acid 0.8 mg capsule 0.8 mg PO DAILY 07/06/22 07/29/22 History Allergies Allergy/AdvReac Type Severity Reaction Status Date / Time erythromycin base Allergy Intermediate Palpitation Verified 07/06/22 15:41 s amoxicillin AdvReac Intermediate Nightmare Verified 07/06/22 15:41 Vital Signs Vital Signs - 24 hr 07/29/22 06:10 07/29/22 06:16 07/29/22 06:31 Pulse Rate 87 86 79 Blood Pressure 111/60 110/70 107/81 Exam Const: General: healthy appearing and alert Orientation/consciousness: patient oriented x3 Resp: Effort & Inspection: normal respiratory effort GI: GI Palp: Yes Soft to palpation, No Tenderness to palpation present (GI) and Yes Other GI palpation findings present ( Fundal height 36 and a) : External Female Exam: normal external appearance Speculum Exam - Vagina: normal appearance of the vagina and normal vaginal discharge Speculum Exam - Cervix: normal appearance of the cervix Bimanual exam- vagina & uterus: consistency normal Bimanual Exam- Adnexa, other: normal adnexae and No adnexal tenderness Neuro: General: patient oriented x3 Assessment and Plan Assessment and plan (1) 39 weeks gestation of : Code(s): Z3A.39 - 39 weeks gestation of Status: Acute (2) H/O: : Code(s): Z98.891 - History of uterine scar from previous surgery Status: Acute Assessment and Plan: plan to proceed with section (3) Encounter for sterilization: Code(s): Z30.2 - Encounter for sterilization Status: Acute Assessment and Plan: plan to proceed with bilateral salpingectomy for sterilization
[2022-07-29] MEDS: LACTATED RINGERS 1,000 ML 125 ML IV CONT (07:39)
[2022-07-29] MEDS: ceFAZolin 2 GM/D5W 50 ML 2 GM/50 ML BAG IVPB (07:49)
[2022-07-29] MEDS: KETOROLAC 30 MG/ML VIAL (*BKC) IV PUSH ×2 (08:39→20:39)
--- NOTE | 2022-07-29 08:43 | W.PM.PROC2 ---
Procedure Note - Detailed Date of Procedure 07/29/22 Pre-op Diagnosis at 39 and 5 7th weeks previous section x3 request sterilization Post-op Diagnosis Same Procedure Performed repeat low-transverse section and bilateral salpingectomies Surgeon Amina Davis MD Anesthesia Spinal Findings female 6lb 2oz with 9 and 9 Apgars; normal-appearing tubes, ovaries, and uterus; adhesions of the anterior uterus to the bladder flap and omentum Description of Procedure The patient is taken to the operating room placed under anesthesia in the dorsal supine position with a leftward tilt. Once she was prepped and draped in usual sterile fashion anesthesia was deemed adequate. A Pfannenstiel skin incision was made through the prior incision and carried down to the fascia which was nicked in the midline with a scalpel. Incision was extended laterally using Arthur scissors. Ochsner was used to tent the fascia which was then dissected off using sharp dissection due to dense adhesions. The bleeding vessels in the subcutaneous tissue and surrounding areas are cauterized for hemostasis. The peritoneum was entered during the dissection of the fascia. The bladder flap was noted to be adherent to the mid fundus as well as omentum being adherent to the fundus. This was dissected off using sharp and blunt dissection as well as cautery. The bladder flap was then created using sharp and blunt dissection. The bladder blade is placed. The lower uterine segment is incised in a transverse fashion with the scalpel and extended laterally using blunt traction. The membranes were ruptured with clear fluid noted. The infant was delivered through the incision while guiding the vertex in the business banking sales assistant applying fundal pressure the head was delivered followed by the body. The cord clamping is delayed. Once the clamp was applied the cord is incised and the infant handed to the waiting pediatric nurse. The placenta was removed using manual traction after cord blood and cord gases were drawn. The uterus is cleared of all clots and debris and exteriorized. The uterine incision was closed using 0 Monocryl in a running locked fashion with the same suture used to imbricate. Good hemostasis is noted of the incision. Several areas of raw tissue are bleeding where adhesions were taken down these are cauterized for hemostasis. Right tube was then grasped with a Gaylord cross clamped with a Z clamp and the distal 2/3 of the tube removed. The pedicle is Elmer stitched and free with good hemostasis noted. The identical procedure was performed on the left side. The cul-de-sac is irrigated and the uterus returned to the abdomen. The incision was again inspected noted to be hemostatic as are the tubal sites. The fascia was then closed using 0 Vicryl in a running fashion. Subcutaneous tissues were irrigated and made hemostatic using Bovie cautery. Skin incision was closed using 4-0 Vicryl in a subcuticular fashion. Dermaflex was placed over the incision. A pressure bandage is placed. Sponge, needle, and instrument counts are correct per the OR staff. Patient was given Ancef prior to incision. Patient was taken to recovery in stable condition. Estimated Blood Loss 220 Drains Yes ( Acosta catheter) Packing No Pathology Yes ( placenta and bilateral tubes) Complications No immediate complications Condition Stable Disposition Floor
--- NOTE | 2022-07-29 08:50 | PM.OBDSVD ---
DS: Admitting Diagnosis Discharge Date 07/31/22 Admitting Diagnosis intrauterine at 39-,5/7 weeks previous section x3 request sterilization DS: Discharge Diagnosis Discharge Diagnosis (1) delivery delivered: Code(s): O82 - Encounter for delivery without indication Status: Acute (2) Encounter for sterilization: Code(s): Z30.2 - Encounter for sterilization Status: Acute (3) H/O: : Code(s): Z98.891 - History of uterine scar from previous surgery Status: Acute (4) 39 weeks gestation of : Code(s): Z3A.39 - 39 weeks gestation of Status: Acute OB - DS: Summary OB Procedures : NST and Ultrasound OB Procedures Intrapartum: low cervical, transverse and Tubal ligation OB Procedures: : None Peripartum Data Delivery Method: Section Procedures: Procedures Operation Date: 07/29/22 07:30 Actual Procedure Side Surgeon p Section Amina Davis MD complications: none Status at Discharge Functional status at discharge: independent ambulation Overall status at discharge: patient is progressing back to baseline Time Spent with Patient Time attestation: Total time spent providing and/or coordinating discharge services: DS: Data Data Completed and Pending Pending studies at discharge: Pending at discharge 07/29/22 08:23 Surgical [PTH] Routine Discharge Plan Discharge Attending physician on discharge: Amina Davis Discharging Clinician: Guillermina Pisano Anticipated Discharge Date/Time: 07/31/22 08:51 Patient Disposition: Home, Self-Care Activity: may shower, may drive after 2 weeks and pelvic rest Diet: regular Wound Care Instructions: incision open to air Discharge Instructions: Education: Mom and Baby Guide Given to: Mother Follow-Up: Call your delivering provider's office for an appointment to be seen in: 1 Week Mom and baby should come to the [facility] for the follow-up appointment. Appointment Date/Time: August 01, 2022 at 9:00 am What to expect at your follow-up visit: Blood Pressure Check Physical Assessment Call [phone] if you are unable to keep your appointment time. BREAST CARE: * Wear a snug supportive bra. * For engorgement discomfort: Breast Feeding: * Apply warm moist washcloths * Express milk as needed to relieve engorgement * Wear loose clothing Bottle Feeding: * May apply ice packs * For sore nipples: * Identify correct latch-on * Apply warm moist washcloths before and after nursing * Air dry nipples after nursing * May apply Lansinoh cream to nipples ABDOMINAL INCISION: (if applicable) * Allow incision to air dry * Do NOT use lotions for powders on your incision * When showering, allow soap and water to run over the incision, but do not wash incision EPISIOTOMY/PERINEAL CARE: * Until bleeding stops, use your jose bottle after urinating * Change your pad frequently throughout the day * You may take sitz baths several times a day (fill your bathtub with warm water and soak for 20 minutes.) Do NOT bathe in the water * No tub baths until seen by your physician - You may shower ACTIVITY: * Rest as much as possible. * Do not exercise or lift anything heavier than your baby (such as laundry or other children.) * Avoid stairs or driving as much as possible. * Do not put anything into the vagina. No douching, tampons, or sexual activity until seen by physician. NOTIFY PHYSICIAN IF YOU HAVE ANY QUESTIONS OR IF ANY OF THE FOLLOWING SYMPTOMS OCCUR: * If your episiotomy or incision becomes red, swollen, or more painful than what you have experienced in the hospital. * If your vaginal bleeding becomes foul smelling. * If your vaginal bleeding becomes more heavy than a period or if your bleedin
[2022-07-29] MEDS: OXYTOCIN 30 UNITS/NS 500 ML 30 UNITS/500 ML BAG 125 UNITS IV CONT (09:38)
[2022-07-29] MEDS: DEXTROSE 5%/0.45% SOD CHL 1,000 ML 125 ML IV CONT ×2 (13:40→21:43)
--- NOTE | 2022-07-29 15:51 | PC.NURSE ---
[phone] Introductions were made, then consulted with patient to assess needs related to . Mother led the conversation with her?plans to feed?her infant and the?experience so far with effective nursing without pain. Resources provided for inpatient and outpatient services with name written on the white board with instructions on using the call light. Mother voiced understanding of information and will call if there is a request for assistance. Reported to the primary RN.
[2022-07-29] MEDS: DOCUSATE SODIUM 100 MG CAPSULE PO (20:40)
[2022-07-30 00:30] VITALS: BP 96/59; PULSE 66; RESP 18; TEMP 36.6; O2SAT 98
[2022-07-30 05:00] VITALS: BP 93/60; PULSE 70; RESP 18; TEMP 37; O2SAT 98
[2022-07-30 05:18] LABS: Basophils Percent Auto 0.3 % (0.2-1.2); Eosinophils Absolute Auto 0.1 K/mm3 (0-0.3); Eosinophils Percent Auto 0.4 % (0-4.4); Hematocrit 34.9 % (37.0-47.0); Hemoglobin 11.5 g/dL (12.0-15.0); Immature Granulocyte Absolute 0.04 K/mm3 (0.00-0.031); Immature Granulocyte Percent A 0.3 % (0-0.5); Lymphocytes Absolute Auto 2.26 K/mm3 (0.9-3.2); Lymphocytes Percent Auto 19.5 % (18.3-44.2); Mean Corpuscular Hemoglobin 32.1 pg (26-34); Mean Corpuscular Volume 97.5 fl (80-100); Mean Platelet Volume 10.5 fl (7.4-10.4); Monocytes Absolute Auto 0.8 K/mm3 (0.1-0.6); Monocytes Percent Auto 6.6 % (2.6-8.5); Neutrophils Absolute Auto 8.4 K/mm3 (1.3-6.7); Neutrophils Percent Auto 72.9 % (45.5-73.1); Platelet Count Result 207 k/mm3 (150-375); Red Blood Count 3.58 M/mm3 (4.2-5.4); Red Cell Distribution Width 13.8 % (11.5-14.5); White Blood Count 11.6 K/mm3 (4.5-10.0)
--- NOTE | 2022-07-30 07:48 | PM.OBPNVD ---
OB - PN: Subj Subjective Date/time seen: 07/30/22 07:48 Patient comments: no complaints baby status: doing well OB - PN: Obj Data Labs 07/30/22 04:36 Labs: Laboratory Results - last 24 hr 07/30/22 04:36 WBC 11.6 H RBC 3.58 L Hgb 11.5 L Hct 34.9 L MCV 97.5 MCH 32.1 MCHC 33.0 RDW 13.8 Plt Count 207 MPV 10.5 H Immature Gran % (Auto) 0.3 Neut % (Auto) 72.9 Lymph % (Auto) 19.5 [place] % (Auto) 6.6 Eos % (Auto) 0.4 Baso % (Auto) 0.3 Lymph # (Auto) 2.26 [place] # (Auto) 0.8 H Eos # (Auto) 0.1 Baso # (Auto) 0.0 Abs Immat Gran (auto) 0.04 H Absolute Neuts (auto) 8.4 H Absolute Nucleated RBC 0.0 Nucleated RBC % 0.0 OB - PN A/P Plan day: 1 Plan: routine care Time Spent With Patient Time: Total time spent is greater than 50% in coordination of care (as documented) at patient's floor/unit and/or counseling patient: Exam Narrative: inc c/d/i : Bimanual exam- vagina & uterus: other (Uterus firm, nt @U)
[2022-07-30 07:50] VITALS: BP 103/68; PULSE 66; RESP 18; TEMP 37; O2SAT 100
[2022-07-30] MEDS: MULTIVIT/MIN/PREN/FOL AC/IRON TABLET 1 TAB PO (08:41)
[2022-07-30] MEDS: LANOLIN (LANSINOH) 7.5 GM CREAM 1 APPLIC TOPICAL (08:41)
[2022-07-30] MEDS: DOCUSATE SODIUM 100 MG CAPSULE PO ×2 (08:41→17:29)
--- NOTE | 2022-07-30 08:50 | WPDANLDNPN2 ---
Anes-Prog Note L&D-Neuraxial Date/Time: 07/30/22 08:50 Patient feedback: Patient satisfied with post-operative pain management.
--- NOTE | 2022-07-30 08:50 | WPDANLDPN2 ---
Anes-Prog Note L&D Date/Time: 07/30/22 08:50 Neuro status: Neuro function grossly intact. Vital Signs: Last Vital Signs Temp 37.0 C 07/30/22 05:00 Pulse 70 07/30/22 05:00 Resp 18 07/30/22 05:00 BP 93/60 L 07/30/22 05:00 Pulse Ox 98 07/30/22 05:00 O2 Del Method Room Air 07/30/22 05:00 Pain score (VAS): 0 I/O: Intake & Output 07/29/22 07/30/22 07/30/22 23:59 07:59 15:59 Intake Total 1750 1700 Output Total 1800 1250 Balance -50 450 Patient feedback: Patient satisfied with anesthetic care.
--- NOTE | 2022-07-30 14:40 | PC.NURSE ---
[id number] Mother verbalizes she is able to independently latch with appropriate positioning/alignment. She denies any nipple discomfort and is responsively . is currently meeting outcomes for weight, output, jaundice and feeding frequencies of 8-12 times in 24 hours. Mother declines any additional assistance/education at this time. Mother is encouraged to call for assistance if her doesn?t latch or there is discomfort with latching. Mother voiced understanding of information shared and the mom reminded of the mom/baby guide for an additional resource. Reported to the primary RN.
[2022-07-30] MEDS: IBUPROFEN 600 MG TABLET PO (17:29)
[2022-07-30 19:45] VITALS: BP 115/73; PULSE 83; RESP 18; TEMP 36.8; O2SAT 100
[2022-07-31] MEDS: IBUPROFEN 600 MG TABLET PO (00:44)
--- NOTE | 2022-07-31 07:52 | P.PNOB_ITS ---
OB - PN: Subj Subjective Date/time seen: 07/31/22 07:30 Patient comments: no complaints and pain well controlled baby status: doing well and nursing well [place] feeding status: exclusively breast feeding Narrative: Ambulating in room. Denies passing any large clots. Tolerating PO food and fluids. Passing flatus. Desires discharge home. OB - PN: Obj Data Labs 07/30/22 04:36 OB - PN A/P Plan day: 2 Plan: routine care Comments: Consider discharge home if baby ok for DC. Time Spent With Patient Time: Total time spent is greater than 50% in coordination of care (as documented) at patient's floor/unit and/or counseling patient: Review of Systems Review of Systems: All systems reviewed & are unremarkable except as noted in HPI and below Exam Const: General: cooperative, no acute distress and awake Orientation/consciousness: patient oriented x3 Limitations: no limitations Resp: Effort & Inspection: normal respiratory effort and able to speak in complete sentences Auscultation: clear to auscultation bilaterally Cardio: Rate: regular rate Peripheral pulses: Peripheral pulses 2+ throughout GI: Inspection: normal to inspection Auscultation: normal bowel sounds : General: Yes bladder normal to palpation Bimanual exam- vagina & uterus: bladder normal to palpation Other: Fundus firm Skin: General skin exam: normal color Other: Incision C/D/I. Skin glue present. No drainage. Neuro: General: patient oriented x3 Cognition (Neuro): normal cognition Speech: normal speech Extrem: General: normal to inspection Psych: Appearance: grossly normal Mental Status: mental status grossly normal Speech and movement: Normal speech and movement present Affect: normal affect Attitude: cooperative Thought process: Normal thought process present
[2022-07-31] MEDS: MULTIVIT/MIN/PREN/FOL AC/IRON TABLET 1 TAB PO (08:27)
[2022-07-31] MEDS: DOCUSATE SODIUM 100 MG CAPSULE PO (08:27)
[2022-07-31 09:30] VITALS: BP 106/63; PULSE 75; RESP 16; TEMP 36.8; O2SAT 100
--- NOTE | 2022-07-31 10:00 | PC.NURSE ---
Patient viewed the discharge video Mother & Baby Care, The First Two Weeks . Patient was given the opportunity and encouraged to ask questions. Patient verbalized understanding of information shared and has been given the mother/baby guide for home reference.
[2022-08-01 09:36] VITALS: BP 111/78; PULSE 78; RESP 20; TEMP 37.5; O2SAT 100
== END 2022-07-31 12:10 | disposition home or self-care (01) | DRG 540 ==
LOC: ANHLDR 05:40 → ANHOB2 11:09
PROVIDERS: Admitting Provider Obstetrics & Gynecology Gynecology; PCP Family Medicine; Visit Provider Obstetrics & Gynecology Gynecology
PROC: 10D00Z1 Extraction of Products of Conception, Low, Open Approach (ICD-10-PCS; CPT 59514; principal; 2022-07-29 07:30)
DX: O34.219 Maternal care for unspecified type scar from previous cesarean delivery (principal); Z30.2 Encounter for sterilization; Z86.16 Personal history of COVID-19; Z87.891 Personal history of nicotine dependence; Z3A.39 39 weeks gestation of pregnancy; Z37.0 Single live birth
CPT/HCPCS: 36415; 85025; 85027; 86592; 86850; 86900; 86901; 88302; 88307; A9270; J0131; J0690; J1100; J1885; J2274; J2370; J2405; J2590; J7120

== ENCOUNTER 2022-12-31 17:50 | Emergency (ER) | payer OTHER, SELFPAY ==
--- NOTE | 2022-12-31 17:53 | ED.SKABFB ---
HPI - Skin/Abscess/Foreign Bdy General Chief complaint: Skin/Abscess/Foreign Body Stated complaint: Bump on right arm Time Seen by Provider: 12/31/22 17:52 Source: patient Mode of arrival: ambulatory Limitations: no limitations History of Present Illness HPI narrative: Catherine is a 42-year-old female patient presenting to clinic today with complaints of a possible infection to the right arm. She reports that she noticed a probable mosquito bite the past few days and was itching at it and now it has become mildly red and mildly tender to touch. She denies any drainage coming out of the area currently however she said she did pop it and slightly little bit of pus did come out Related Data Home Medications Medication Instructions Recorded Confirmed prenat.vits,estefany,[id number] 1 tablet PO DAILY 06/24/20 07/29/22 cholecalciferol (vitamin D3) 125 125 mcg PO DAILY 07/06/22 07/29/22 mcg (5,000 unit) tablet (Vitamin D3) Allergies Allergy/AdvReac Type Severity Reaction Status Date / Time erythromycin base Allergy Intermediate Palpitation Verified 07/06/22 15:41 s amoxicillin AdvReac Intermediate Nightmare Verified 07/06/22 15:41 Review of Systems Review of Systems: Pertinent positives per HPI. Patient denies any fever, chills, rash, headache, visual changes, dizziness, cough, runny nose, sore throat, shortness of breath, chest pain, palpitations, nausea, vomiting, diarrhea, constipation, abdominal pain, or any urinary issues. PMFSH Past Medical History Medical History (Updated 12/31/22 @ 18:00 by Boubacar Bobby APRN) Anxiety Migraines Surgical History Surgical History H/O: x 3 Family History Family History Mother Hypertension Father Hypertension Grandparent Diabetes mellitus Social History Social History Smoking packs per day: 1 Smoking cigarettes per day: 20.0 Years smoked: 16 Smoking pack-years: 16.00 Smoking status: Former smoker Tobacco type: cigarettes Second hand tobacco smoke exposure: No Substance use: never Lack of Transportation: No Lack of Food: Never True Current Housing: I Have Housing Concerned About Future Housing: No Difficulty Paying Gas/Electric Bills: No Difficulty Paying for Meds: No Currently Unemployed: No Education: Grade School Difficulty w/ Childcare or Family Care: No Spiritual care concerns: No Comments At the time of my signature, I reviewed and agree with the nursing past medical, surgical, social, and family history. There is no relevant family history pertinent to the patient complaint. Exam Narrative: General: Well-developed, well nourished, in no apparent distress Head: Normocephalic, atraumatic. Cardio: Regular rate and rhythm, s1 and s2 normal, no murmur appreciated. Resp: Clear to auscultation bilaterally, no rhonchi, rales, wheezing or rubs. Integumentary: [place], warm, and dry, mildly red indurated area the size of a marble the right to anterior forearm Course Course Emergency Course: Portions of this record may have been created with voice recognition software. Level of Care: Express Care Visit Vital Signs Vital signs: Vital signs reviewed MDM - Skin/Abscess/Foreign Bdy MDM Narrative Medical decision making narrative: At the time of visit patient is resting comfortably on the exam table. I suspect patient has an infected insect bite. Prescription for mupirocin cream was sent to the pharmacy and supportive measures were discussed with the patient she voiced understanding discharge instructions agrees to treatment plan. Differential Diagnosis Differential diagnosis: Likely abscess of skin or subcutaneous tissue, cellulitis, insect bites, impetigo and contact dermatitis Discharge Plan Discharge Clini
[2022-12-31 17:57] VITALS: BP 112/84; PULSE 82; RESP 16; TEMP 36.5; O2SAT 99
== END 2022-12-31 18:04 | disposition home or self-care (01) ==
PROVIDERS: Emergency Provider Nurse Practitioner Family; PCP Family Medicine
DX: L08.9 Local infection of the skin and subcutaneous tissue, unspecified (principal); B96.89 Other specified bacterial agents as the cause of diseases classified elsewhere; Z87.891 Personal history of nicotine dependence
CPT/HCPCS: 99213; G0463

== ENCOUNTER 2023-01-10 16:16 | Emergency (ER) | payer OTHER, SELFPAY ==
[2023-01-10 16:25] VITALS: BP 109/82; PULSE 91; RESP 18; TEMP 36.5; O2SAT 98
--- NOTE | 2023-01-10 16:30 | ED.GENADULT ---
HPI - General Adult General Chief complaint: Dental/Oral Stated complaint: Breast Thrush Time Seen by Provider: 01/10/23 16:30 Source: patient, RN notes reviewed and old records reviewed Mode of arrival: ambulatory Limitations: no limitations History of Present Illness HPI narrative: 42-year-old female presents with her baby. Patient reports irritation to her bilateral nipples, has thrush. No erythema or ecchymosis noted to the bilateral areolas sore nipples. No white plaques noted Onset (ago): day(s) (2-3) Related Data Home Medications Medication Instructions Recorded Confirmed prenat.vits,estefnay,[id number] 1 tablet PO DAILY 06/24/20 01/10/23 cholecalciferol (vitamin D3) 125 125 mcg PO DAILY 07/06/22 01/10/23 mcg (5,000 unit) tablet (Vitamin D3) Allergies Allergy/AdvReac Type Severity Reaction Status Date / Time erythromycin base Allergy Intermediate Palpitation Verified 01/10/23 16:28 s amoxicillin AdvReac Intermediate Nightmare Verified 01/10/23 16:28 Review of Systems Review of Systems: All systems reviewed & are unremarkable except as noted in HPI and below Constitutional: Constitutional: Reports no additional constitutional complaints Eyes: Eyes: Reports no additional eye complaints ENT: Reports system reviewed and no additional complaints, except as documented Cardiovascular: Cardiovascular: Reports no additional cardiovascular complaints, Denies chest pain and Denies dyspnea Respiratory: Respiratory: Reports no additional respiratory complaints, Denies chest congestion, Denies cough and Denies dyspnea Gastrointestinal: Gastrointestinal: Reports no additional gastrointestinal complaints, Denies abdominal pain, Denies nausea and Denies vomiting Musculoskeletal: Musculoskeletal: Reports no additional musculoskeletal complaints Integumentary/Breasts: Skin/Breast: Reports system reviewed and no additional complaints, except as docu Neurologic: Reports system reviewed and no additional complaints, except as documented Psychiatric: Psychiatric: Reports no additional psychiatric complaints Allergic/Immunologic: Allergic/Immunologic: Reports no additional allergic/immunologic complaints PMFSH Past Medical History Medical History Anxiety Migraines Surgical History Surgical History H/O: x 3 Family History Family History Mother Hypertension Father Hypertension Grandparent Diabetes mellitus Social History Social History Smoking packs per day: 1 Smoking cigarettes per day: 20.0 Years smoked: 16 Smoking pack-years: 16.00 Smoking status: Former smoker Tobacco type: cigarettes Second hand tobacco smoke exposure: No Substance use: never Lack of Transportation: No Lack of Food: Never True Current Housing: I Have Housing Concerned About Future Housing: No Difficulty Paying Gas/Electric Bills: No Difficulty Paying for Meds: No Currently Unemployed: No Education: Grade School Difficulty w/ Childcare or Family Care: No Spiritual care concerns: No Comments At the time of my signature, I reviewed and agree with the nursing past medical, surgical, social, and family history. There is no relevant family history pertinent to the patient complaint. Exam Const: General: cooperative, healthy appearing, comfortable, no acute distress, well developed, alert and well nourished Nutritional Appearance: well nourished Orientation/consciousness: patient oriented x3 Limitations: no limitations HENMT: Head: normal to inspection Ears: hearing grossly normal bilaterally and external ears normal Face/Nose/Sinus: Normal external nose present, Normal nares present, Normal nasal mucous membranes and turbinates present, normal faci
== END 2023-01-10 16:58 | disposition home or self-care (01) ==
PROVIDERS: Emergency Provider Nurse Practitioner; PCP Family Medicine
DX: N64.4 Mastodynia (principal); Z87.891 Personal history of nicotine dependence
CPT/HCPCS: 99213; G0463

== ENCOUNTER 2024-03-06 11:24 | Emergency (ER) | payer OTHER, SELFPAY ==
--- NOTE | 2024-03-06 11:25 | ED_ITS ---
HPI - URI/Sore Throat General Chief Complaint: Upper Respiratory Infection Stated Complaint: Cough/Sore Throat/Fever Time Seen by Provider: 03/06/24 12:00 Source: patient and RN notes reviewed Mode of arrival: ambulatory Limitations: no limitations History of Present Illness HPI Narrative: 43-year-old female presents with concern for cough, sore throat, fever, aches, chills. Reports her children oral sick, some have pneumonia and some have strep throat. She is an so she has only been taking Tylenol ibuprofen. MD elicited complaint: cough and sore throat Related Data Home Medications ?Medication ?Instructions ?Recorded ?Confirmed ?Last Taken ?Type prenat.vits,estefany,jop-[id number]-mzrxh 1 tablet PO DAILY 06/24/20 01/10/23 07/28/22 21:00 History cholecalciferol (vitamin D3) 125 125 mcg PO DAILY 07/06/22 01/10/23 07/28/22 21:00 History mcg (5,000 unit) tablet (Vitamin D3) Allergies Allergy/AdvReac Type Severity Reaction Status Date / Time amoxicillin AdvReac Intermediate Nightmare Verified 03/06/24 12:28 erythromycin base AdvReac Intermediate Palpitation Verified 03/06/24 12:28 s Review of Systems Review of Systems: CONSTITUTIONAL: Denies malaise, chills, sweats, or fever. EYES: Denies visual changes, redness, or discharge. ENT: Reports rhinorrhea, congestion, sinus pain, otalgia and sore throat. CARDIOVASCULAR: Denies chest pain, palpitations, or edema. RESPIRATORY: Reports cough. Denies dyspnea. GASTROINTESTINAL: Denies abdominal pain, nausea, vomiting, diarrhea SKIN: Denies rash or itching. MUSCULOSKELETAL: Denies myalgia. NEUROLOGIC: Denies headache. All systems reviewed & are unremarkable except as noted in HPI and below PMFSH Past Medical History Medical History Anxiety Migraines Surgical History Surgical History H/O: x 3 Family History Family History Mother Hypertension Father Hypertension Grandparent Diabetes mellitus Social History Social History Smoking packs per day: 1 Smoking cigarettes per day: 20.0 Years smoked: 16 Smoking pack-years: 16.00 Smoking status: Former smoker Tobacco type: cigarettes Second hand tobacco smoke exposure: No Substance use: never Lack of Transportation: No Lack of Food: Never True Current Housing: I Have Housing Concerned About Future Housing: No Difficulty Paying Gas/Electric Bills: No Difficulty Paying for Meds: No Currently Unemployed: No Education: Grade School Difficulty w/ Childcare or Family Care: No Spiritual care concerns: No Comments At time of signature, agree with nursing past medical, surgical, social and family history. There is no relevant family history pertinent to the presenting complaint Exam Narrative: GENERAL: Well-appearing, well-nourished, and in no acute distress. HEAD: Normocephalic EYES: PERRLA, conjunctivae clear ENT: Nares yony. Mucous membranes moist. TM pearly prieto with dull light reflex bilaterally; no tragal tenderness. Oropharynx not erythematous without lesions. Tonsils not enlarged and without exudate, no drooling, no hoarseness, no trismus, uvula midline. NECK: Supple. No lymphadenopathy CHEST: Clear to auscultation, breath sounds equal. No wheezing, rhonchi, rales, or stridor. No respiratory distress, speaks in full sentences. HEART: Regular rate and rhythm. No murmur heard. SKIN: Warm, dry, no rash. NEURO: Alert and oriented x3. PSYCH: Normal mood and affect Course Course Emergency Course: Patient is aware of diagnosis, understands and agrees to treatment plan. Anticipatory guidance given. Patient agrees to follow-up as directed and is aware of reasons to seek care at the emergency department. Portions of this record may have been created with voice recognition software Level of Care: Express Care Visit Vital Signs Vital signs: Reviewed. MDM - URI/Sore Throat MDM Narrative Medical decision making narrative: Differential diagnosis considered: [place] virus, strep pharyngitis, allergic rhinitis, upper respiratory tract infection, sinusitis, rhinosinusitis, nasopharyngitis. viral pharyngitis, otitis media, otitis externa, pneumonia, bronchitis, viral cough syndrome, viral syndrome, and influenza. Exam findings show no acute concerns or changes; patient is non-toxic appearing and is in no distress. Patient is appropriate for outpatient treatment and follow-up. Lab Data Attestation: I reviewed the patient's lab results. Critical Care Time Critical Care Time Critical Care Time: No Discharge Plan Discharge Clinical Impression: Lower respiratory tract infection Patient Disposition: Home, Self-Care Condition: Stable Instructions: Antibiotic Form, Acute Cough (ED) Additional Instructions: Take medication as directed Recommend antihistamine such as Benadryl at night time and Zyrtec or Renea during the day Also, recommend symptomatic treatment includes: rest, fluids, and increase humidity of the air at home. Recommend Acetaminophen as directed on the bottle to reduce fever, pain, headache. Please schedule a follow-up visit with your personal physician for further evaluation and treatment within 3-5days. If your symptoms persist, change or worsen significantly before you can contact your personal physician then please, without delay, go to the emergency department for further evaluation. Patient Language: Syrian Prescriptions: New azithromycin [Zithromax Z-[place]] 250 mg tablet See Rx Instructions .ROUTE .COMPLEX Qty: 6 0RF Rx Instructions: take 500 mg today (day 1), then 250 mg for 4 days (days 2-5) pseudoephedrine HCl [12 Hour Decongestant] 120 mg tablet extended release 120 mg PO Q12H PRN (Reason: nasal congestion) Qty: 20 0RF No Action prenat.vits,estefany,[id number] Tablet 1 tablet PO DAILY cholecalciferol (vitamin D3) [Vitamin D3] 125 mcg (5,000 unit) Tablet 125 mcg PO DAILY nystatin 100,000 unit/gram cream 1 applic topical BID Qty: 30 1RF Rx Instructions: Apply to affected area twice daily until healing is complete. Follow-up/Referrals: PHYSICIAN,PRINTING EQUIPMENT MECHANIC APPRENTICE [Primary Care Provider] - Time of Disposition: 12:31
[2024-03-06 11:56] VITALS: BP 111/86; PULSE 96; RESP 16; TEMP 36.7; O2SAT 98
[2024-03-06 12:01] LABS: EDSTREPNEGPOS1 Negative (Negative)
[2024-03-06 12:11] LABS: EDCOVIDSCREEN Negative (Negative); EDINFLUASCREEN Negative (Negative); EDINFLUBSCREEN Negative (Negative)
== END 2024-03-06 12:41 | disposition home or self-care (01) ==
PROVIDERS: Emergency Provider Nurse Practitioner
DX: J22 Unspecified acute lower respiratory infection (principal); Z87.891 Personal history of nicotine dependence; Z20.822 Contact with and (suspected) exposure to COVID-19
CPT/HCPCS: 87081; 87426; 87804; 87880; 99213; G0463